=== PATIENT | male | born 1980 | race Caucasian/White ===

== ENCOUNTER 2016-10-11 11:22 | Inpatient (IN) | payer OTHER ==
--- NOTE | ~2016-10-11 | DS ---
Unit #: [id number] #: [id number] Patient: MANUEL AYALA [id number] [address] [place], [place] [address] [id number] I MR#: [id number] NAME: MANUEL AYALA ROOM: 304 Age: 35 Sex: M Admission Date: 10/11/2016 : 1980 Discharge Date: 10/13/2016 Attending Physician: Gregg Aguirre M.D. Primary Care Physician: Jose Manuel Biggs M.D. DISCHARGE SUMMARY FINAL DIAGNOSES 1. Enterocolitis. 2. Chronic alcohol abuse. 3. Alcoholic ketosis. 4. Illicit drug abuse. 5. Tobacco abuse. 6. Chronic abdominal pain, lower. 7. Diarrhea with mucus in stool. DISCHARGE MEDICATIONS 1. Levaquin 500 mg daily. 2. Metronidazole 500 mg t.i.d. for five days. 3. Phenergan 25 mg p.o. q.8 h. p.r.n. CONSULTATIONS DURING HOSPITALIZATION Dr. Mando Avila from [facility]. ADMITTING PHYSICIAN Dr. Aguirre. DISCHARGING PHYSICIAN Dr. Jaimie Ordonez. DIAGNOSTIC STUDIES LABORATORY WORKUP: On discharge RPR is negative. CMP shows sodium 138, potassium 4.1, chloride 108, BUN 19, creatinine 1.1, liver enzymes were stable, lipase 18. CBC shows WBC 14.1, hemoglobin 14.7, hematocrit 43.7, platelet count of 152. On admission the patient's WBC count was 27.9. It could be secondary to dehydration and may be (1) . Urine drug screen was positive for marijuana. IMAGING: Radiological studies done during hospitalization: CT scan of the abdomen and pelvis which showed mild wall thickening in the colon suggesting mild pancolitis, small bowel is grossly normal, fatty infiltration of the liver. Ultrasound of the abdomen was done which shows negative gallbladder ultrasound examination. HOSPITAL COURSE Mr. Vela is a 35-year-old male who was admitted to the hospital with nausea, vomiting, abdominal pain. Patient was admitted to telemetry unit. Unit #: [id number] #: [id number] Patient: MANUEL AYALA IV fluids were started. IV Levaquin and IV metronidazole were started. Dr. Avila from [facility] was consulted. There is a question of enterocolitis. Gallbladder disease was ruled out. Patient is doing much better at this time. He would like to go home. Patient will need colonoscopy as outpatient. Patient did have bradycardia during the hospitalization. Patient refuses to get any cardiac workup done at this time. According to patient, he has had bradycardia for a long period of time although he has not had any workup done. Patient's TSH level is 0.62 and free T4 1.37 which is in normal range. Patient verbalized understanding that he could have a sick sinus syndrome and he could have syncopal episode and dizziness. According to patient, he would get workup done as outpatient. I did have Thomas, the patient's nurse, in the room during this discussion. PHYSICAL EXAMINATION ON DISCHARGE VITAL SIGNS: Blood pressure is 118/75. Respiratory rate 18. Pulse is 69. Temperature 98.7. Oxygen saturation is 100%. HEENT: Head is normocephalic. Eye movements are normal. NECK: Neck is supple. CHEST: Has fair air entry, no additional sounds. CVS: S1, S2 positive, regular rhythm. ABDOMEN: Abdomen is soft. Very mild tenderness. No rigidity. No rebound. Bowel sounds are positive. EXTREMITIES: Negative edema. DISCHARGE INSTRUCTIONS Patient is being discharged home. DISCHARGE MEDICATION Medication as per med rec. FOLLOWUP AND DISCHARGE INSTRUCTIONS 1. Follow up with primary care provider Saturday week. 2. Patient will need a workup for bradycardia as outpatient. 3. Patient will need to see cardiology as outpatient. Plan of care has been discussed with patient. He does verbalize understanding. Dictated by... Jaimie Ordonez M.D. QUINTIN/james TD: 10/15/2016 20:49 JOB #: [id number] Unit #: [id number] #: [id number] Patient: MANUEL AYALA DISCHARGE SUMMARY Page 1 of 1 X Jaimie Ordonez MD X DISCHARGE SUMMARY
--- NOTE | ~2016-10-11 | EKG ---
PATIENT: MANUEL AYALA UNIT #: [id number] Ventricular Rate: 42 BPM Atrial Rate: 42 BPM P-R Interval: 146 ms QRS Duration: 96 ms Q-T Interval: 496 ms QTC Calculation(Bezet): 414 ms P Florence: 72 degrees Calculated R Florence: 81 degrees Calculated T Florence: 53 degrees Diagnosis Line: Marked sinus bradycardia Diagnosis Line: Abnormal ECG Diagnosis Line: No previous ECGs available Diagnosis Line: Confirmed by FARRUKH SUAREZ MD ([id number]) on Diagnosis Line: 10/14/2016 10:03:47 PM INTERPRETING MD: NENA
--- NOTE | ~2016-10-11 | CT2 ---
[facility] A Service of [facility] RADIOLOGY TEXT RESULTS PATIENT: MANUEL AYALA LOCATION: C3A PC 304-01 : [birth year] UNIT #: [id number] AGE: [address]: Gregg Aguirre MD SEX: M ORDER DR: [id number] [facility] [address] [facility]. [place], [place] [address] [id number] MR#: [id number] Acc #: [id number] NAME: MANUEL AYALA : 1980 SEX: M STUDY DATE/TIME: 10/11/2016 13:16 UNIT: [facility] ROOM: STUDY DESCRIPTION: CT Abd and Pelv W Cont Attending Physician: Luther Ruiz M.D. Ordering Physician: Luther Ruiz M.D. Primary Care Physician: Jose Manuel Biggs M.D. MEDICAL IMAGING REPORT This report is preliminary unless electronic signature is present EXAM CT abdomen and pelvis 10/11 HISTORY Nausea, vomiting and diarrhea today. History of chronic drug and alcohol abuse. TECHNIQUE Axial images were obtained through the abdomen and pelvis following IV contrast administration. Multiplanar reformats were obtained. This CT exam was performed with one or more of the following radiation dose reduction techniques: automatic exposure control, adjustment of mA and/or kV according to patient size, and iterative reconstruction. COMPARISON STUDIES 05/21/2015. FINDINGS ABDOMEN: Lung bases are clear. The exam is motion-degraded. Gallbladder is grossly normal. There is fatty infiltration of the liver. Solid organs are otherwise grossly normal. Mild wall thickening of the colon, may indicate a mild degree of colitis. Opacified GI tract is otherwise abnormal. PELVIS: Urinary bladder is normal. Mild wall thickening in the lower colon suggests mild colitis. Additional small bowel is normal. No free fluid is seen. Again seen are bilateral L4 pars defects with grade 1 spondylolisthesis of L4 on L5. IMPRESSION 1. Motion-degraded exam. [facility] RADIOLOGY TEXT RESULTS PATIENT: MANUEL AYALA LOCATION: C3A PC 304- : [birth year] UNIT #: [id number] AGE: [address]: Gregg Aguirre MD SEX: M ORDER DR: 2. Mild wall thickening in the colon suggesting mild pancolitis. Small bowel is grossly normal. 3. Fatty infiltration of the liver. Dictated by... Reynaldo Gaming Jr., M.D. THIS IS AN ELECTRONICALLY VERIFIED REPORT Reynaldo Gaming Jr., M.D. at 10/12/2016 6:10 AM AMANDA/ramon TD: 10/11/2016 16:05 JOB #: [id number] MEDICAL IMAGING REPORT Page 1 of 1 COPY
--- NOTE | ~2016-10-11 | CO ---
Unit #: [id number] #: [id number] Patient: MANUEL AYALA [id number] [id number] [facility]. [place], [place] [address] [id number] I MR#: [id number] NAME: MANUEL AYALA ROOM: 304 Age: 35 Sex: M Admission Date: 10/11/2016 : 1980 Attending Physician: Gregg Aguirre M.D. Primary Care Physician: Jose Manuel Biggs M.D. Consultation Date: 10/12/2016 CONSULTATION REPORT HISTORY OF PRESENT ILLNESS The patient is a 35-year-old white male who was admitted through the emergency room complaining of nausea, vomiting and diarrhea. This had become worse over the last couple of days but he has had chronic diarrhea for some time. He had a recent upper endoscopy, he states, that showed some growth or wart-like lesion of the esophagus but this was felt to be benign. He has had no previous colonoscopy. He is a chronic alcohol abuser and also chronic smoker. Apparently, due to his diarrhea, he has been unable to work. He initially had a job at [employer] on the [employer]. PAST MEDICAL HISTORY Unremarkable. SOCIAL HISTORY Patient is single. Smokes and drinks as noted above. Normal good appetite. No recent weight change. IMMUNIZATIONS Up to date. REVIEW OF SYSTEMS Not remarkable except that noted in present illness. PHYSICAL EXAMINATION VITAL SIGNS: Normal. Afebrile. HEENT: Unremarkable. NECK: Supple. CHEST: Equal bilateral expansion with bilateral equal breath sounds. LUNGS: Clear bilaterally. HEART: Regular rhythm without murmurs, gallops. No evidence of cardiomegaly clinically. ABDOMEN: Soft, minimally tender without mass or organomegaly. No gross abdominal distention. No guarding or rebound. Active bowel sounds are present. There is no evidence of ascites or hernias. EXTREMITIES: Full range of motion without limitation. There is no evidence of peripheral edema. BACK: No CVA tenderness. NEUROLOGIC: Grossly intact. DIAGNOSTIC STUDIES LABORATORY: Liver function tests are presently nearly normal. White blood cell count significantly elevated at 27,000 on admission, it is down Unit #: [id number] #: [id number] Patient: MANUEL AYALA to 14,000 now. Hemoglobin is normal. Chemistry is normal otherwise. IMAGING: CT scan in the emergency room revealed thickening in the colon possibly on the basis of chronic colitis or enterocolitis. Gallbladder and liver appeared normal. He has had a previous CAT scan that revealed some questionable fluid around the gallbladder that could have been related to some liver disease. IMPRESSION The patient has nausea, vomiting and abdominal pain probably on the basis of his chronic alcohol abuse with alcoholic gastritis. He may also have enterocolitis. I doubt he has any gallbladder disease. PLAN Would suggest a CCK HIDA scan today if his ultrasound is normal. Also, await consult from Dr. Shea who may recommend that he have a colonoscopy. Dictated by... Mando Avila Jr., MAshley. CHRISTY/francisco javier TD: 10/12/2016 22:06 JOB #: [id number] CONSULTATION REPORT Page 1 of 1 X Mando Avila MD X CONSULTATION REPORT
--- NOTE | ~2016-10-11 | HM ---
Unit #: [id number] #: [id number] Patient: MANUEL AYALA [id number] [facility]. [address] [address] [id number] I MR#: [id number] NAME: MANUEL AYALA : 1980 SEX: M STUDY DATE/TIME: 10/26/2016 UNIT: C3A PCU ROOM: 304 STUDY DESCRIPTION: Holter Monitor Attending Physician: Gregg Aguirre M.D. Primary Care Physician: Jose Manuel Biggs M.D. CARDIOLOGY REPORT EXAM [id number] Holter REASON FOR THE STUDY Bradycardia. DATE APPLIED 10/13/2016 DATE SCANNED 10/23/2016 FINDINGS Underlying rhythm is normal sinus rhythm with an average heart rate of 65 beats per minute, minimum heart rate of 35 beats per minute with a maximum heart rate of 136 beats per minute. The minimum heart rate of 35 beats per minute is noted at 12:48 a.m. The maximum heart rate of 136 beats per minute is noted at 8:29 p.m. Patient had a 1.76 second pause noted at 12:48 a.m. Patient had no premature ventricular complex noted. Patient had six premature atrial complexes noted. Patient did not record any symptoms. CONCLUSION 1. Underlying rhythm is normal sinus rhythm with an average heart rate of 65 beats per minute, minimum heart rate of 35 beats per minute and a maximum heart rate of 136 beats per minute. 2. No sustained atrial or ventricular arrhythmias noted. 3. No significant pauses noted. 4. No premature atrial complex or premature ventricular complex noted. 3. Patient did not record any symptoms. 4. Normal 24-hour Holter report. Dictated by... Del Murcia/james TD: 10/26/2016 16:16 JOB #: [id number] Unit #: [id number] #: [id number] Patient: MANUEL AYALA CARDIOLOGY REPORT Page 1 of 1 X Peyton Art MD <ELECTRONICALLY SIGNED> 12/01/16 1429 HOLTER MONITOR REPORT
--- NOTE | ~2016-10-11 | HP ---
Unit #: [id number] #: [id number] Patient: MANUEL MCKOY [id number] [address] [place], [place] [address] [id number] I MR#: [id number] NAME: MANUEL MCKOY ROOM: 304 Age: 35 Sex: M Admission Date: 10/11/2016 : 1980 Attending Physician: Gregg Aguirre M.D. Primary Care Physician: Jose Manuel Biggs M.D. HISTORY AND PHYSICAL ADMISSION DIAGNOSES 1. Questionable GI bleed. 2. Alcohol use. 3. History of EGD secondary to gastritis and questionable GI bleed. HISTORY OF PRESENT ILLNESS Mr. Mckoy is a 35-year-old, gentleman patient of Dr. Biggs'jean carlos who comes to the emergency room with the complaints of the questionable GI bleed. Apparently, he was drinking some (1) whiskey yesterday and he started vomiting and he was told that his vomitus was kind of bloody. Initial evaluation in the emergency room was significant for some metabolic acidosis with a bicarb of 16 and then 19 with some alcohol level of 133, amylase 55, and AST at 45. His white count was elevated at 27,000. H and H initially was 18.3 and 54.6 and subsequent 1 was 16.6 and 49.1. Tox screen positive for marijuana. UA with some ketones and glucose. Otherwise, patient also complains of right upper quadrant tenderness along with some nausea. Denies any fever or chills. Denies any chest pain. Denies any headache or dizziness. Denies any syncope or presyncope. Denies any diarrhea. Describes pain as sharp, 6 out of 10. No alleviating or (2) factors. No radiation to other parts of the belly. REVIEW OF SYSTEMS Twelve-point review of systems on this patient is basically negative, except as above. PAST MEDICAL HISTORY Significant for history of questionable GI bleed in the past with recent EGD. Otherwise, he denies any medical issues. No medical history. PAST SURGICAL HISTORY Significant for breast surgery for gynecomastia. HOME MEDICATIONS None. ALLERGIES No known drug allergies. SOCIAL HISTORY He tells me that he drinks only occasionally. He is an active smoker and had been a smoker all his life. Denies illicit drugs; however, tox screen positive for marijuana. Unit #: [id number] #: [id number] Patient: MANUEL MCKOY FAMILY HISTORY Unremarkable. PHYSICAL EXAM GENERAL APPEARANCE: Patient is a 35-year-old gentleman in no acute distress. VITAL SIGNS: BP 112/51, heart rate 68, respirations 16, and temperature 99.1. HEENT: Head is atraumatic. Pupils are equal, round, and reactive to light and accommodation. Extraocular muscles intact. Oropharynx clear. NECK: Supple. No mass. No JVD. No bruits. CHEST: Diminished at the bases. CARDIOVASCULAR: S1 and S2. No murmurs. ABDOMEN: Soft. Tender at the right upper quadrant. No rebound. Bowel sounds are diminished. LOWER EXTREMITIES: Without any cyanosis, clubbing, or edema. NEUROLOGIC: Patient grossly intact. No focal deficits. DIAGNOSTIC STUDIES IMAGING: CT abdomen and pelvis shows mild wall thickening in the colon suggesting a mild pancolitis. Fatty infiltration of the liver. LABORATORY: Chemistry as above in HPI. Hematology as above in HPI. UA as above in HPI. ASSESSMENT AND PLAN 1. Questionable GI bleed. Monitor H and H. Consult LSA. May need an EGD. 2. Pancolitis with abdominal pain. Started on the IV Flagyl and Levaquin in the ER, which will be continued. Will also go ahead and get the right upper quadrant ultrasound to rule out cholecystitis. 3. Alcoholic ketosis. Continue IV fluids. Monitor bicarb. Consider nephrology evaluation. Start on CIWA protocol. 4. Illicit drug use. Counseled on the importance of quitting drug habits and alcohol. 5. Tobacco use. Again, counseled on the importance of quitting tobacco. 6. GI and DVT prophylaxes. Patient will be on IV Protonix 40 b.i.d. and SCDs to lower extremities. Dictated by Del Mcbride/latoya TD: 10/12/2016 05:15 JOB #: [id number] Unit #: [id number] #: [id number] Patient: MANUEL MCKOY HISTORY AND PHYSICAL Page 1 of 1 X Gregg Aguirre MD HISTORY AND PHYSICAL
--- NOTE | ~2016-10-11 | CO ---
Unit #: [id number] #: [id number] Patient: MANUEL MCKOY [id number] [id number] [facility]. [place], [place] [address] [id number] I MR#: [id number] NAME: MANUEL MCKOY ROOM: 304 Age: 35 Sex: M Admission Date: 10/11/2016 : 1980 Attending Physician: Gregg Aguirre M.D. Primary Care Physician: Jose Manuel Biggs M.D. CONSULTATION REPORT CONSULTATION REQUESTING PHYSICIAN Dr. Ordonez. REASON FOR CONSULTATION REQUEST Bradycardia. HISTORY OF PRESENT ILLNESS Mr. Mckoy is a pleasant 35-year-old, male, seen in room 304 with his friend present. He is a patient of Dr. Biggs. He was admitted with nausea, vomiting, and diarrhea, worse over the past few days, with a recent endoscopy which showed a lesion in the esophagus, felt to be benign. He is a chronic alcohol abuser, and smoker. He stated to me that he did not use other drugs. When asked directly about marijuana, he admitted to marijuana not considering that an illegal drug. He is seen with bradycardia, with heart rates in the 40s, down to 35 when at rest. 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 Specifically, he does not have any PND, orthopnea, syncope, presyncope, dizziness, or edema. He has no strong family history of coronary artery disease. FAMILY HISTORY Negative for premature atherosclerotic disease. PAST MEDICAL HISTORY Esophagus lesion as noted above only. No diabetes, hypertension, or dyslipidemia. TSH was normal. 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 Apparently, these data cannot be transmitted unless he carries them by himself. He just underwent a three-day test at home, and was told he had moderate sleep apnea. SOCIAL HISTORY He is single, has a close friend in the room with him. He smokes and drinks as noted above. States that he does not use drugs. States also that he does use marijuana to calm his stomach. PAST SURGICAL HISTORY None known. MEDICATIONS None. ALLERGIES Unit #: [id number] #: [id number] Patient: MANUEL MCKOY Sulfa and amoxicillin. PHYSICAL EXAMINATION GENERAL: Pleasant, alert, in no acute distress. VITAL SIGNS: Blood pressure 118/75, heart rate has varied between 34 and 69 and is regular. Respiratory rate is 18. Height 5 feet 10 inches, weight 158 pounds, BMI 22. SKIN: Warm and dry. No xanthelasma. MUSCULOSKELETAL: No missing digits. Moves easily for evaluation. NEUROLOGICAL: Appropriate mood and affect. Alert and oriented x3. HEENT: Pupils equal, round and reactive. No oral cyanosis. No icterus. NECK: Carotids clear to auscultation with no carotid bruits. Normal carotid upstroke bilaterally. Thyroid is normal in size and texture without masses or tenderness. CHEST: Clear to auscultation with no rales or wheezes. Good effort. CARDIAC: Normal point of maximum impulse. Normal S1 and S2. No S3, S4 or rub. ABDOMEN: No hepatosplenomegaly, masses or tenderness. Normal bowel sounds. No abdominal bruits heard. EXTREMITIES: No clubbing, cyanosis or edema. Excellent posterior tibial and dorsalis pedis pulses. DIAGNOSTIC STUDIES LABORATORY RESULTS: TSH is 0.62 as noted above. Creatinine 1.1, potassium 4.1. Liver enzymes are normal. Troponin just run this afternoon is normal. White blood count 14.1, hemoglobin 14.7, platelet count 152,000. Urine is positive for marijuana. Urinalysis shows glucose and urobilinogen, but is otherwise negative. Ketones are 3+. Fasting glucose was 87. IMPRESSION 1. Bradycardia, likely related to untreated sleep apnea. 2. Obstructive sleep apnea. 3. Marijuana use. 4. No medications to account for bradycardia. RECOMMENDATIONS 1. Holter monitor for 24 hours to make sure he does not have any significant pauses. None have been seen in the hospital. He will get this on Saturday afternoon, this afternoon, and go home. 2. Get sleep apnea treated. 3. Continue to monitor thyroid on a regular basis. 4. Recommend discontinuation of marijuana and alcohol as well as cigarettes. Thank you very much for this consultation. We will follow him in 6 weeks as an outpatient. Dictated by... Sreedhar Jang M.D. ENZO/guanakito TD: 10/14/2016 16:12 JOB #: [id number] Unit #: [id number] #: [id number] Patient: MANUEL MCKOY CONSULTATION REPORT Page 1 of 1 X Sreedhar Jang MD CONSULTATION REPORT
--- NOTE | ~2016-10-11 | US6 ---
[facility] A Service of [facility] RADIOLOGY TEXT RESULTS PATIENT: MANUEL AYALA LOCATION: [facility] 304-01 : [birth year] UNIT #: [id number] AGE: [address]: Gregg Aguirre MD SEX: M ORDER DR: [id number] [facility] [address] [facility]. [place], [place] [address] [id number] I MR#: [id number] #: [id number] NAME: MANUEL AYALA : 1980 SEX: M STUDY DATE/TIME: 10/12/2016 7:23 UNIT: A [facility] ROOM: [facility] STUDY DESCRIPTION: US Abdominal Limited Attending Physician: Gregg Aguirre M.D. Ordering Physician: Gregg Aguirre M.D. Primary Care Physician: Jose Manuel Biggs M.D. MEDICAL IMAGING REPORT This report is preliminary unless electronic signature is present EXAM Right upper quadrant ultrasound, 10/12/2016. HISTORY Right upper quadrant abdominal pain for 14 years with diarrhea and vomiting, cholecystitis. FINDINGS Ultrasound examination of the gallbladder is negative. There is no cholelithiasis, gallbladder wall thickening, or bile duct dilatation. The visualized liver is negative. IMPRESSION Negative gallbladder ultrasound examination. Dictated by... Chandler Escobar M.D. THIS IS AN ELECTRONICALLY VERIFIED REPORT Chandler Escobar M.D. at 10/12/2016 4:33 PM ANASTASIYA/gael TD: 10/12/2016 12:36 JOB #: [id number] MEDICAL IMAGING REPORT Page 1 of 1 COPY
[~2016-10-11 11:22] MED LIST: NO MEDICATIONS; PROTONIX PO
[2016-10-11 12:35] LABS: BASOPHIL# 0.1 X10e3 (0-0.3); BASOPHIL% 0.5 % (0-2.5); EOSINOPHIL# 0.3 X10e3 (0-0.7); EOSINOPHIL% 1.2 % (0.0-7.0); HEMATOCRIT 54.6 % (38.0-50.0); HEMOGLOBIN 18.3 gm/dL (13.0-16.0); LYMPHOCYTE# 2.9 X10e3 (1.0-3.5); LYMPHOCYTE% 10.3 % (17.0-45.0); MEAN CELL VOLUME 95.7 FL (83-96); MEAN CORPUSCULAR HEMOGLOBIN 32.1 PG (28-34); MEAN CORPUSCULAR HGB CONC 33.5 g/dL (30-36); MEAN PLATELET VOLUME 8.5 FL (6.5-11.5); MONOCYTE# 1.2 X10e3 (0-1.0); MONOCYTE% 4.3 % (3.0-12.0); NEUTROPHIL# 23.4 X10e3 (1.5-7.1); NEUTROPHIL% 83.7 % (40-75); PLATELET COUNT 255 X10e3 (140-420); RED BLOOD COUNT 5.71 X10e (3.90-5.60); RED CELL DISTRIBUTION WIDTH 12.5 % (11.0-15.5); WHITE BLOOD COUNT 27.9 X10e3 (4.0-10.5)
[2016-10-11 12:36] LABS: DIFF IND YES
[2016-10-11 12:56] LABS: ANISOCYTOSIS SL; PLATELET ESTIMATE NORMAL (NORMAL)
[2016-10-11 13:05] LABS: ALBUMIN SERUM 5.4 g/dL (3.5-5.0); BILIRUBIN, DIRECT 0.2 mg/dL (0.0-0.2); BILIRUBIN,INDIRECT 0.6 mg/dL (0.0-0.9); BILIRUBIN,TOTAL 0.8 mg/dL (0.2-2.0); BUN/CREATININE RATIO 17.27; CALCIUM SERUM 9.5 mg/dL (8.4-10.2); CREATININE SERUM 1.1 mg/dL (0.6-1.4); GLOM FILT RATE Estimated 87.8 mL/min (>60); POTASSIUM 3.9 mmol/L (3.5-5.1); PROTEIN TOTAL SERUM 8.5 g/dL (6.0-8.3)
[2016-10-11 15:02] LABS: URINE SOURCE CLEAN CATCH
[2016-10-11 15:14] LABS: URINE APPEARANCE CLEAR; URINE BILIRUBIN NEG (NEG); URINE BLOOD TRACE (NEG); URINE COLOR YELLOW; URINE GLUCOSE 500 MG/DL (NEG); URINE KETONE 3+ (NEG); URINE LEUKOCYTE ESTERASE NEG (NEG); URINE NITRATE NEG (NEG); URINE PROTEIN NEG (NEG); URINE SPECIFIC GRAVITY 1.042 (1.003-1.035); URINE UROBILINOGEN 0.2 MG/DL (NEG)
[2016-10-11 15:25] LABS: URINE BACTERIA AUWI NEG (NEGATIVE); URINE SQUAMOUS EPITHELIAL CELL NONE SEEN /[HPF]; UWBCS1 AUWI 0-2 (0-5)
[2016-10-11 15:27] LABS: CULTURE INDICATED? NO
[2016-10-11 15:37] LABS: AMPHETAMINE NEG (NEG); BARBITURATES NEG (NEG); BENZODIAZEPINES NEG (NEG); COCAINE NEG (NEG); MARIJUANA POS (NEG); OPIATES NEG (NEG); TRICYCLIC ANTIDEPRESSANTS NEG (NEG); U METHADONE NEG (NEG)
[2016-10-11 17:18] LABS: THYROID STIMULATING HORMONE 0.62 uIU/ml (0.34-5.60)
[2016-10-11 17:25] LABS: FREE THYROXIN (T4) 1.37 ng/dL (0.58-1.64)
[2016-10-11 17:53] LABS: HEMATOCRIT 49.1 % (38.0-50.0); HEMOGLOBIN 16.6 gm/dL (13.0-16.0)
[2016-10-11 18:15] LABS: ALBUMIN SERUM 4.8 g/dL (3.5-5.0); BILIRUBIN,TOTAL 1.1 mg/dL (0.2-2.0); CALCIUM SERUM 9.1 mg/dL (8.4-10.2); GLOM FILT RATE Estimated 98.5 mL/min (>60); POTASSIUM 4.3 mmol/L (3.5-5.1); PROTEIN TOTAL SERUM 7.6 g/dL (6.0-8.3)
[2016-10-12 05:18] LABS: HEMATOCRIT 43.7 % (38.0-50.0); HEMOGLOBIN 14.7 gm/dL (13.0-16.0); MEAN CORPUSCULAR HEMOGLOBIN 32.4 PG (28-34); MEAN CORPUSCULAR HGB CONC 33.7 g/dL (30-36); MEAN PLATELET VOLUME 8.2 FL (6.5-11.5); RED BLOOD COUNT 4.55 X10e (3.90-5.60); RED CELL DISTRIBUTION WIDTH 12.6 % (11.0-15.5); WHITE BLOOD COUNT 14.1 X10e3 (4.0-10.5)
[2016-10-12 06:05] LABS: ALBUMIN SERUM 3.7 g/dL (3.5-5.0); BILIRUBIN,TOTAL 1.6 mg/dL (0.2-2.0); BUN/CREATININE RATIO 17.27; CALCIUM SERUM 8.8 mg/dL (8.4-10.2); CREATININE SERUM 1.1 mg/dL (0.6-1.4); GLOM FILT RATE Estimated 87.8 mL/min (>60); POTASSIUM 4.1 mmol/L (3.5-5.1); PROTEIN TOTAL SERUM 6.1 g/dL (6.0-8.3)
[2016-10-13] MEDS ORDERED: MULTI VITAMIN1 EACH PO (14:59)
[2016-10-13] MEDS ORDERED: PHENERGAN25 M1 PO (15:00)
[2016-10-13] MEDS ORDERED: LEVAQUIN PO (15:00)
[2016-10-13] MEDS ORDERED: FLAGYL PO (15:01)
[2016-10-13 15:52] LABS: %MB 0.6 % (0.0-4.0); MB 1.7 ng/ml
== END 2016-10-13 18:17 | disposition home or self-care (01) | DRG 392 ==
LOC: CED 11:22 → CEDOF 16:05 → CED 16:24 → CEDOF 16:24 → C3A PCU 20:14
PROVIDERS: Emergency Medicine; Hospitalist
DX: K52.9 Noninfective gastroenteritis and colitis, unspecified (principal); E88.89 Other specified metabolic disorders; K51.00 Ulcerative (chronic) pancolitis without complications; F10.10 Alcohol abuse, uncomplicated; F19.10 Other psychoactive substance abuse, uncomplicated; F17.210 Nicotine dependence, cigarettes, uncomplicated; G89.29 Other chronic pain; R10.9 Unspecified abdominal pain; Z88.2 Allergy status to sulfonamides; Z88.0 Allergy status to penicillin; Z88.1 Allergy status to other antibiotic agents; K29.20 Alcoholic gastritis without bleeding
CPT/HCPCS: 36415; 74177; 76705; 80048; 80053; 80076; 80307; 81003; 82150; 82550; 82553; 82947; 83690; 84439; 84443; 84484; 85014; 85018; 85025; 85027; 86592; 93005; 93225; 93226; 96361; 96365; 96368; 96372; 96375; 96376; 99285; C9113; G0480; J0500; J1956; J2060; J2405; J2550; J3411; J3475; Q9967